=== PATIENT | female | born 2005 | race Caucasian/White ===

== ENCOUNTER 2024-07-07 07:59 | Emergency (ER) | payer OTHER, SELFPAY ==
[2024-07-07 10:05] VITALS: BP 99/68
[2024-07-07 10:24] LABS: Glucose - Point of Care 102 mg/dl (70-99)
[2024-07-07] MEDS: TYLENOL 1000 MG PO (10:45)
[2024-07-07] MEDS: VALIUM 5 MG PO (10:45)
[2024-07-07 10:53] LABS: % Basophils 0.4 % (0-2); % Eosinophils 0.7 % (0-6); % Immature Granulocytes 0.3 % (0-0.5); % Lymphocytes 21.5 % (20.5-51.1); % Neutrophils 70.1 % (42.2-75.2); Absolute Eosinophils 0.1 10^3/uL (0-0.7); Absolute Lymphocytes 1.6 10^3/uL (1.2-3.4); Absolute Monocytes 0.5 10^3/uL (0.1-0.6); Absolute Neutrophils 5.2 10^3/uL (1.4-6.5); Hematocrit 39.9 % (37.0-47.0); Hemoglobin 13.6 g/dL (12.0-16.0); Mean Corp Hgb Conc. 34.1 g/dL (33.0-37.0); Mean Corpuscular Hgb 30.2 pg (27.0-31.0); Mean Corpuscular Volume 88.7 fL (81.0-99.0); Mean Platelet Volume 8.9 fL (7.4-10.4); Nucleated Red Blood Cells % 0 %; Platelet Count 269 10^3/uL (130-400); Red Cell Dist. Width 12.9 % (11.5-14.5); White Blood Cell Count 7.4 10^3/uL (4.8-10.8)
[2024-07-07 11:00] VITALS: BP 100/60
[2024-07-07 11:01] LABS: HCG, Serum Qualitative Screen Negative
[2024-07-07 11:03] LABS: ALT (SGPT) 13 U/L (0-35); AST (SGOT) 19 U/L (14-36); Albumin 4.9 g/dl (3.5-5.0); Alkaline Phosphatase 57 U/L (38-126); Blood Urea Nitrogen 17 mg/dl (7-17); Carbon Dioxide 26 mmol/L (22-30); Chloride 105 mmol/L (98-107); Glucose 107 mg/dl (70-99); Potassium 4.8 mmol/L (3.5-5.1); Sodium 139 mmol/L (135-145); Total Bilirubin 0.5 mg/dl (0.2-1.3); Total Protein 7.6 g/dl (6.3-8.2); eGFR > 60.00
--- NOTE | 2024-07-07 11:16 | ED.GENMED ---
History of Present Illness
General
Chief Complaint: Fainting/Passed Out
Source: patient and family
Exam Limitations: none
Time Seen by Provider: 07/07/24 09:59
Nursing documentation reviewed up to this point in time: agreed with
History of Present Illness
History of Present Illness:
pt is a 18 y/o F with factor V leiden
here with R sided neck pain
woke up with it yesterdya, worse with turning head tot he R
she took motrin and was able to have her day as usual
she complained a little about her neck feelin funny, like she slept on it wrong
she went to bed, woke up with much worsening pain dorian with flexion and turning to the R with pain that goes into her R shoulder region and is sharp at times with movement
no headache, vision changes, sore throat, voice change, wekaness or numbness in arms
her mom helped her out of bed and walked to the bathroom to take a shower
while in the shower she felt very lightheaded and suddenly felt like sh ewas going to pass out
mom helped her back tot he bed and she sat down, her eyes dilated and she passe dout
mom laid her on the ground and called 911
pt came to quickly
has not had any new symptoms
no fever
Past History
Past History
ED Past Medical History: Other (factor v leiden)
Social History
Tobacco: Non-smoker
Alcohol: None
Drug: None
Personal: Single
Living: with family
Employment: Student
Review of Systems
Review of Systems
Allergies reviewed?: Yes
All Other Systems: Not applicable
Phy Exam
Physical Exam
Physical Exam:
GENERAL: Alert , in no apparent distress, comfortable at rest
HEAD: NCAT
no photophobia
NECK: no tenderness midline
R sided paraspinal tendenress; and trap tenderness
painful limited ROm
no rash
CARDIAC: Regular rate and rhythm, no edema
LUNGS: Clear breath sounds bilaterally, no acute respiratory distress, no wheezes/rales/rhonchi
ABDOMEN: Soft, without focal tenderness, no r/g, no cvat, normal bowel sounds, nondistended
NEUROLOGICAL: Alert and oriented, no focal neuro deficits, CN intact, 5/5 strength, sensation intact, finger to nose intact
SKIN: Warm and dry,
PSYCH: Normal and appropriate interaction.
Course
Orders/Labs/Results
Orders:
Orders
07/07/24 08:07
EKG [Electrocardiogram (*1)] Urgent
Reason for Study: Syncope
07/07/24 08:08
EKG- Treatment ONCE
07/07/24 10:34
CT Head & Neck Angio W/wo IV Urgent
Comment:
Reason For Exam: severe R neck pain, sycnope
Acetaminophen [Tylenol] 1,000 mg PO NOW STA
Diazepam [Valium] 5 mg PO NOW STA
07/07/24 10:35
Test Result ONCE
07/07/24 10:43
Complete Blood Count/With Diff Urgent
Comprehensive Metabolic Panel Urgent
HCG, Serum Qualitative Screen Urgent
07/07/24 12:33
Ketorolac [Toradol] 15 mg IV NOW STA
Abnormal Lab Results
07/07/24 07/07/24
10:22 10:43
Glucose 107 H mg/dl
(70-99)
POC Glucose 102 H mg/dl
(70-99)
07/07/24 10:43
07/07/24 10:43
Vital Signs
Temp: 36.9 C
Initial and Last Documented VS:
Initial Vital Signs
BP
99/68
07/07/24 10:05
Last Documented Vital Signs
Temp Pulse Resp BP Pulse Ox
36.9 C 81 21 94/55 99
07/07/24 11:21 07/07/24 12:40 07/07/24 12:40 07/07/24 12:40 07/07/24 12:38
MDM/Problems Addressed
Differential Diagnosis Includes:
torticollis, cercal radiucopathy, less likely dissection ,meningitis , vasovagal syndope
MDM/Problems Addressed:
18 y/o F
factor v leiden
no AC
here with graudal onset of R sided neck stiffness since yesterdaymorniing
thought she slep wrong
much wrose today
No neurosymptoms but does feel some pain that radiates from her right neck into her right upper shoulder. She is not having any numbness tingling or weakness or headache, there is no fever. On exam she is very hesitant to rotate her head to the
right laterally and flex it and she has mild neck spasm, anteriorly normal exam, looks very well otherwise, neuro intact. I suspect mostly this is torticollis/musculoskeletal cause of her pain however with her syncope felt most comfortable doing a
CTA which ultimately was negative. Her syncope story does sound much like a vasovagal episode in the shower. She feels much better now. She was given Valium and it helped a lot with her pain. Will give Toradol prior to discharge and recommend to
NSAIDs 3 times daily and Valium as needed every 8. Discussed with ED attending Dr. Sotelo who agreed
*Critical Care Note
Total Time (30-74mins, 75-104mins- exclusive of procedures): Not Applicable
ED Attending Note
-
Portions of this chart may have been created with voice recognition software.� Occasional wrong word or��sound alike� substitutions may have occurred due to the inherent limitations of voice recognition software.
Discharge Plan
Departure
Patient Disposition: Home (Routine Discharge)
Date of Disposition: 07/07/24
Time of Disposition: 12:33
Patient with high blood pressure during this ER visit?: No
Condition: Fair
Covid-19: Not Applicable
Discharge Problem:
Syncope, vasovagal, Acute torticollis
Instructions: Syncope (Fainting) (DC), Torticollis (DC)
Prescriptions:
New
diazepam [Valium] 5 mg tablet
5 mg PO TID PRN (Reason: muscle spasm) Qty: 12 0RF
No Action
pantoprazole 40 MG tablet,delayed release (DR/EC)
40 mg PO DAILY Qty: 30 0RF
Rx Instructions:
Take 30 minutes prior to breakfast in the a.m.
Referrals:
Ricci Briceno, DO [Family Provider] - Follow up in 2-3 days
Activity Restrictions/Additional Instructions:
I think your pain is probably from tight muscles in your neck, you could have also a pinched nerve. Your CAT scan imaging was reassuring. Take ibuprofen 600 mg 3 times a day with food, the next dose can be around 8 PM tonight. Also take Tylenol 2
extra strength 2-3 times a day as needed for pain as well. For the muscle spasm you can use Valium 5 mg every 8 hours as needed. Heat off-and-on to your neck. Watch for worsening symptoms like arm weakness or arm numbness, severe headache,
dizziness, repeated passing out episodes and return to the ER as needed for those. Otherwise follow-up with your doctor. Avoid heavy lifting for today. The Valium may cause some sedation, no driving or alcohol while on
Interventions
Interventions:
*Risk Screen - Suicide Last Done: 07/07/24 08:04
*General Assessment Last Done: 07/07/24 08:04
*Neglect/Abuse Screening Last Done: 07/07/24 12:47
ED- Fall Risk Assessment Last Done: 07/07/24 10:07
*ED COVID-19 Vaccine History Last Done: 07/07/24 08:04
*Nursing Disposition Last Done: 07/07/24 12:47
ED- Cardiac Assessment Last Done: 07/07/24 10:08
ED- Neurological Assessment Last Done: 07/07/24 10:08
Discharge Date and Time
Discharge Date/Time: 07/07/24 12:50
Print Language: BENGALI
[2024-07-07 11:49] VITALS: BMI 26.6
[2024-07-07 12:00] VITALS: BP 97/55
[2024-07-07 12:40] VITALS: BP 94/55
[2024-07-07] MEDS: TORADOL 15 MG IV (12:40)
== END 2024-07-07 12:50 | disposition home or self-care (01) ==
LOC: EMR 07:59
PROVIDERS: Physician Assistant; EMERGENCY PHYSICIAN Emergency Medicine; FAMILY PHYSICIAN Family Medicine
DX: R55 Syncope and collapse (principal); M43.6 Torticollis; D68.51 Activated protein C resistance
CPT/HCPCS: 99284; 96374; 70496; 70498; 80053; 82962; 84703; 85025; 93005; Q9967